=== PATIENT | female | born 1960 | race Caucasian/White ===

== ENCOUNTER → 2024-10-10 06:19 | Outpatient (REF) | payer BC, SELFPAY | LOC: RCS 06:19 | PROVIDERS: ATTENDING PHYSICIAN Internal Medicine Cardiovascular Disease; FAMILY PHYSICIAN Internal Medicine | DX: R94.31 Abnormal electrocardiogram [ECG] [EKG] (principal); R06.00 Dyspnea, unspecified | CPT/HCPCS: 78452; 93017; A9500 ==